=== PATIENT | female | born 1980 | race Caucasian/White ===

== ENCOUNTER 2016-05-08 14:23 | Day surgery (SDC) | payer OTHER ==
[~2016-05-08] VITALS: Ht 172.7 cm; Wt 101.2 kg
[~2016-05-08 14:23] MED LIST: LAMICTAL (BLUE)25 MG PO; LYRICA100 MG PO; LYRICA150 MG PO; MELOXICAM7.5 MG PO; MORPHINE SULFAT15 M1 PO; NABUMETONE750 MG PO; NEURONTIN300 MG PO; PERCOCET 5/31 TABLET PO; PROMETHAZINE HC25 M1 PO; ROBAXIN500 MG PO; SARAFEM10 M1 PO; SEROQUEL50 MG PO; TOPAMAX50 MG PO; ZANAFLEX4 M1 PO
== END 2016-05-08 16:26 | disposition home or self-care (01) ==
LOC: PAIN 14:23
PROC: 3E0S33Z Introduction of Anti-inflammatory into Epidural Space, Percutaneous Approach (ICD-10-PCS; principal; 2016-05-08)
DX: M54.16 Radiculopathy, lumbar region (principal); F41.9 Anxiety disorder, unspecified; M54.2 Cervicalgia; M51.36 Other intervertebral disc degeneration, lumbar region; M48.06 Spinal stenosis, lumbar region; M62.838 Other muscle spasm; Z88.2 Allergy status to sulfonamides; Z88.8 Allergy status to other drugs, medicaments and biological substances
CPT/HCPCS: J1100; J2250; J3010

== ENCOUNTER 2016-06-12 15:10 | Day surgery (SDC) | payer OTHER ==
[~2016-06-12] VITALS: Ht 172.7 cm; Wt 100.2 kg
[~2016-06-12 15:10] MED LIST changes: +PROVENTIL HFA6.7 GM IH
== END 2016-06-12 16:30 | disposition home or self-care (01) ==
LOC: PAIN 15:10
PROC: 3E0S33Z Introduction of Anti-inflammatory into Epidural Space, Percutaneous Approach (ICD-10-PCS; principal; 2016-06-12)
DX: M54.16 Radiculopathy, lumbar region (principal); F41.9 Anxiety disorder, unspecified; M48.06 Spinal stenosis, lumbar region; M25.562 Pain in left knee; M25.561 Pain in right knee; Z79.891 Long term (current) use of opiate analgesic; Z88.2 Allergy status to sulfonamides; Z88.5 Allergy status to narcotic agent
CPT/HCPCS: J1100; J2250; J3010

== ENCOUNTER 2017-05-07 12:38 | Day surgery (SDC) | payer OTHER ==
[~2017-05-07] VITALS: Ht 172.7 cm; Wt 93.4 kg
[~2017-05-07 12:38] MED LIST changes: -LYRICA150 MG PO; +LYRICA200 MG PO; -ROBAXIN500 MG PO; +SKELAXIN800 MG PO; +WOMEN'S DAILY1 EAC4 PO
== END 2017-05-07 14:35 | disposition home or self-care (01) ==
LOC: PAIN 12:38 → SDC 13:00 → PAIN 13:00
PROC: 3E0S33Z Introduction of Anti-inflammatory into Epidural Space, Percutaneous Approach (ICD-10-PCS; principal; 2017-05-07)
DX: M54.16 Radiculopathy, lumbar region (principal); M51.36 Other intervertebral disc degeneration, lumbar region; M48.061 Spinal stenosis, lumbar region without neurogenic claudication; M62.838 Other muscle spasm; Z88.5 Allergy status to narcotic agent; Z88.2 Allergy status to sulfonamides
CPT/HCPCS: J1100; J2250; J3010

== ENCOUNTER 2017-08-13 07:42 | Day surgery (SDC) | payer OTHER ==
[~2017-08-13] VITALS: Ht 172.7 cm; Wt 95.2 kg
== END 2017-08-13 09:00 | disposition home or self-care (01) ==
LOC: PAIN 07:42 → SDC 08:15 → PAIN 09:00
DX: M47.816 Spondylosis without myelopathy or radiculopathy, lumbar region (principal); M51.36 Other intervertebral disc degeneration, lumbar region; M48.061 Spinal stenosis, lumbar region without neurogenic claudication; M54.16 Radiculopathy, lumbar region; M51.16 Intervertebral disc disorders with radiculopathy, lumbar region; M62.838 Other muscle spasm; M19.90 Unspecified osteoarthritis, unspecified site; M46.1 Sacroiliitis, not elsewhere classified; M79.1 Myalgia; Z88.2 Allergy status to sulfonamides; Z88.5 Allergy status to narcotic agent
CPT/HCPCS: J1030; J2250; J3010; S0020

== ENCOUNTER 2017-08-20 07:39 | Day surgery (SDC) | payer OTHER ==
[~2017-08-20] VITALS: Ht 172.7 cm; Wt 93.4 kg
== END 2017-08-20 09:18 | disposition home or self-care (01) ==
LOC: PAIN 07:39 → SDC 08:15 → PAIN 09:18
DX: M47.816 Spondylosis without myelopathy or radiculopathy, lumbar region (principal); M51.16 Intervertebral disc disorders with radiculopathy, lumbar region; M48.061 Spinal stenosis, lumbar region without neurogenic claudication; M79.7 Fibromyalgia; J45.909 Unspecified asthma, uncomplicated; Z88.2 Allergy status to sulfonamides; Z79.891 Long term (current) use of opiate analgesic
CPT/HCPCS: J1030; J2250; S0020